=== PATIENT | male | born 1960 | race Caucasian/White ===

== ENCOUNTER 2020-08-30 18:43 | Emergency (ER) | payer MEDICAID ==
[~2020-08-30] VITALS: Ht 165.1 cm; Wt 69.0 kg
[2020-08-30] MEDS ORDERED: ONDANSETRON HCL 4MG/2ML INJ IV STA (19:35)
[2020-08-30] MEDS ORDERED: SODIUM CHLORIDE 0.9% 1,000 ML IV ONE (19:45)
[2020-08-30 20:08] LABS: BASOPHILS % 0.6 % (0.0-2.0); HEMATOCRIT. 46.4 % (42.0-52.0); HEMOGLOBIN. 15.7 g/dL (14.0-18.0); LYMPHOCYTES % 12.8 % (20.0-50.0); MEAN CORPUSCULAR HEMOGLOBIN 30.7 pg (28.0-32.0); MEAN CORPUSCULAR VOLUME 90.8 fL (80.0-94.0); MEAN PLATELET VOLUME 8.8 fl (7.4-10.4); MONOCYTES % 6.3 % (2.0-8.0); NEUTROPHILS % 80.3 % (40.0-76.0); PLATELET 215 x1000/uL (130-400)
[2020-08-30] MEDS ORDERED: ACETAMINOPHEN 500MG TABLET PO ONE (20:15)
[2020-08-30 20:24] LABS: CHLORIDE 97 mEq/L (98-107)
[2020-08-30] MEDS ORDERED: CEFTRIAXONE 1 G PREMIX 50 ML IV ONE (20:45)
[2020-08-30] MEDS ORDERED: AZITHROMYCIN 500 MG in DEXT 5% WATER 250 ML IV ONE (20:45)
[2020-08-30] MEDS ORDERED: ALBUTEROL 6.7GM HFA INHALER ORI PRN (22:00)
[2020-08-30] MEDS ORDERED: KETOROLAC 15MG/ML VIAL IV PRN (22:00)
[2020-08-30] MEDS ORDERED: ENOXAPARIN 40MG/0.4ML SYR SUBCUT SCH (22:00)
[2020-08-30] MEDS ORDERED: MAGNESIUM/ALUMINUM HYDROXIDE/SIMETHICONE 30ML UDC PO PRN (22:00)
[2020-08-30] MEDS ORDERED: NITROGLYCERIN 0.4MG TABLET SL SL PRN (22:00)
[2020-08-30] MEDS ORDERED: ACETAMINOPHEN 325MG TABLET PO PRN ×2 (22:00)
[2020-08-30] MEDS ORDERED: CLONIDINE 0.1MG TABLET PO PRN (22:00)
[2020-08-30] MEDS ORDERED: GUAIFENESIN 200MG/10ML SUGAR FREE UDC PO PRN (22:00)
[2020-08-30] MEDS ORDERED: GUAIFENESIN/DM 600MG/30MG ER TAB 12HR PO SCH (22:00)
[2020-08-30] MEDS ORDERED: ONDANSETRON HCL 4MG/2ML INJ IV PRN (22:00)
[2020-08-30] MEDS ORDERED: ZOLPIDEM TARTRATE 5MG TABLET PO PRN (22:00)
[2020-08-30] MEDS ORDERED: DOCUSATE SODIUM 100MG CAPSULE PO PRN (22:00)
[2020-08-31 00:03] LABS: LDL CHOLESTEROL 87 mg/dL (5-100)
[2020-08-31 00:04] LABS: CREATINE KINASE 133 IU/L (39-308); HDL CHOLESTEROL 32 mg/dL (40-59)
[2020-08-31 00:06] LABS: CREATINE KINASE MB FRACTION < 1.0 ng/mL (0.5-3.6)
[2020-08-31 01:59] LABS: CLARITY URINE TURBID (CLEAR); COLOR URINE YELLOW (YELLOW); KETONES URINE 1+ (NEGATIVE); LEUKOCYTE ESTERASE URINE 2+ (NEGATIVE); NITRITE URINE NEGATIVE (NEGATIVE); OCCULT BLOOD URINE NEGATIVE (NEGATIVE); PH URINE 6.5 (4.5-8.0); PROTEIN URINE 1+ (NEGATIVE)
[2020-08-31 02:09] LABS: *BENZODIAZEPINES SCREEN URINE NEGATIVE (NEGATIVE)
[2020-08-31 02:10] LABS: *BARBITURATES SCREEN URINE NEGATIVE (NEGATIVE); *COCAINE SCREEN URINE NEGATIVE (NEGATIVE); CANNABINOID URINE SCREEN NEGATIVE (NEGATIVE); METHADONE URINE SCREEN NEGATIVE (NEGATIVE); OPIATES URINE SCREEN NEGATIVE (NEGATIVE); PHENCYCLIDINE URINE SCREEN NEGATIVE (NEGATIVE)
[2020-08-31 02:11] LABS: *AMPHETAMINES SCREEN URINE NEGATIVE (NEGATIVE)
[2020-08-31] MEDS ORDERED: ALBUTEROL 6.7GM HFA INHALER ORI SCH (03:00)
[2020-08-31 05:55] VITALS: BP 110/76
[2020-08-31 06:45] LABS: CREATINE KINASE 118 IU/L (39-308)
[2020-08-31 06:46] LABS: CREATINE KINASE MB FRACTION < 1.0 ng/mL (0.5-3.6)
[2020-08-31] MEDS ORDERED: AZITHROMYCIN 500 MG in DEXT 5% WATER 250 ML IV SCH (08:00)
[2020-08-31] MEDS ORDERED: ZINC SULFATE 220 MG ( 50 ) CAPSULE PO SCH (09:00)
[2020-08-31] MEDS ORDERED: CEFTRIAXONE 1 G PREMIX 50 ML IV SCH (09:00)
[2020-08-31] MEDS ORDERED: ASCORBIC ACID 500 MG TABLET PO SCH (09:00)
[2020-08-31] MEDS ORDERED: FAMOTIDINE 20MG TABLET PO SCH (09:00)
[2020-08-31] MEDS ORDERED: CHOLECALCIFEROL (D3) 1000 UNIT TABLET PO SCH (09:00)
== END 2020-08-31 08:24 | disposition left against medical advice (07) ==
LOC: ER 18:54 → EDBEDREQ 21:27 → EDBEDREQTM 21:27 → ENRESERV 08-31 07:38 → CANRESERV 08-31 07:38 → ER 08-31 08:24 → CANBEDREQ 08-31 09:59
DX: U07.1 COVID-19 (principal); J18.9 Pneumonia, unspecified organism; R11.2 Nausea with vomiting, unspecified; I49.9 Cardiac arrhythmia, unspecified
CPT/HCPCS: 36415; 71045; 80053; 80061; 80305; 81003; 82550; 82553; 83036; 83605; 83690; 83880; 84484; 85025; 93005; 94640; 96365; 96367; 96372; 96375; 99285; C9803; J0456; J0696; J1650; J2405; J7030; J7060; U0003; Z7610